=== PATIENT | female | born 1980 | race Caucasian/White ===

== ENCOUNTER 2016-07-23 23:16 | Emergency (ER) | payer BC ==
--- NOTE | 2016-07-24 01:25 | ED CLINICAL REPORT ---
Clinical Report - Physicians/Mid Levels [facility] [address] [place] [address] 07/23/2016 23:19 Patient: GEO QUIROGA Time Seen: 00:21. Arrived- By private vehicle. Historian- patient. HISTORY OF PRESENT ILLNESS Chief Complaint: EARACHE. This started last night and is still present and now worse. It was abrupt in onset and has been constant. Location- left ear. The pain is described as severe. The patient has had severe left-sided ear drainage. She has had recent barotrauma (she says that she was driving and felt her ear "pop"the pain was less severe initially but has become much worse.). No nasal congestion, sinus pressure, jaw pain or facial pain. REVIEW OF SYSTEMS No chills, fever, sweats, calf pain or chest pain. No cough, difficulty breathing, pedal edema, palpitations or abdominal pain. No constipation, diarrhea, nausea, vomiting or urinary problems. All systems otherwise negative, except as recorded above. PAST HISTORY Medications: None. Allergies: Rocephin. SOCIAL HISTORY Never smoker. History of drug use cannabidiol. FAMILY HISTORY Denies family medical history. ADDITIONAL NOTES The nursing notes have been reviewed. PHYSICAL EXAM Vital Signs: 07/24/2016 00:13 BP: 134/85. HR: 76. RR: 18. O2 saturation: 100%. Temp: 97.2 F. Have been reviewed. Appearance: Alert. Throat: Pharynx normal. Ear (left): There is erythema and dullness of the tympanic membrane. No fluid behind the tympanic membrane or bulging of the tympanic membrane. Nose: Nose normal. Ear (right): Right ear normal. Neck: Normal inspection. Neck supple. CVS: Normal heart rate and rhythm. Heart sounds normal. Respiratory: Breath sounds normal. Abdomen: Soft and nontender. Back: Normal inspection. Skin: Skin warm and dry. Normal skin color. Normal skin turgor. Extremities: Extremities exhibit normal ROM. No lower extremity edema. PROGRESS AND PROCEDURES Course of Care: Patient is stable. Patient/family counseled. Disposition: Discharged. Condition: stable. CLINICAL IMPRESSION Acute left otalgia INSTRUCTIONS No driving or operating machinery while taking medication. Drink plenty of fluids. Warnings: Further evaluation is necessary. GENERAL WARNINGS: Return or contact your physician immediately if your condition worsens or changes unexpectedly, if not improving as expected, or if other problems arise. Prescription Medications: Tylenol with Codeine #3 (30 mg / 300 mg): take 1 tablet every 4 hours as needed for pain. Dispense fifteen (15). No refills. Substitution is permissible. Amoxicillin 500 mg tablets: Take 1 orally every 8 hours for 10 days. Dispense thirty (30). No refills. Understanding of the discharge instructions verbalized by patient. (Electronically signed by Fuentes Holden MD 07/28/2016 1:25)
--- NOTE | 2016-07-24 01:25 | ED CLINICAL REPORT ---
Clinical Report - Physicians/Mid Levels [facility] [address] [place] [address] 07/23/2016 23:19 Patient: GEO QUIROGA Time Seen: 00:21. Arrived- By private vehicle. Historian- patient. HISTORY OF PRESENT ILLNESS Chief Complaint: EARACHE. This started last night and is still present and now worse. It was abrupt in onset and has been constant. Location- left ear. The pain is described as severe. The patient has had severe left-sided ear drainage. She has had recent barotrauma (she says that she was driving and felt her ear "pop"the pain was less severe initially but has become much worse.). No nasal congestion, sinus pressure, jaw pain or facial pain. REVIEW OF SYSTEMS No chills, fever, sweats, calf pain or chest pain. No cough, difficulty breathing, pedal edema, palpitations or abdominal pain. No constipation, diarrhea, nausea, vomiting or urinary problems. All systems otherwise negative, except as recorded above. PAST HISTORY Medications: None. Allergies: Rocephin. SOCIAL HISTORY Never smoker. History of drug use cannabidiol. FAMILY HISTORY Denies family medical history. ADDITIONAL NOTES The nursing notes have been reviewed. PHYSICAL EXAM Vital Signs: 07/24/2016 00:13 BP: 134/85. HR: 76. RR: 18. O2 saturation: 100%. Temp: 97.2 F. Have been reviewed. Appearance: Alert. Throat: Pharynx normal. Ear (left): There is erythema and dullness of the tympanic membrane. No fluid behind the tympanic membrane or bulging of the tympanic membrane. Nose: Nose normal. Ear (right): Right ear normal. Neck: Normal inspection. Neck supple. CVS: Normal heart rate and rhythm. Heart sounds normal. Respiratory: Breath sounds normal. Abdomen: Soft and nontender. Back: Normal inspection. Skin: Skin warm and dry. Normal skin color. Normal skin turgor. Extremities: Extremities exhibit normal ROM. No lower extremity edema. PROGRESS AND PROCEDURES Course of Care: Patient is stable. Patient/family counseled. Disposition: Discharged. Condition: stable. CLINICAL IMPRESSION Acute left otalgia INSTRUCTIONS No driving or operating machinery while taking medication. Drink plenty of fluids. Warnings: Further evaluation is necessary. GENERAL WARNINGS: Return or contact your physician immediately if your condition worsens or changes unexpectedly, if not improving as expected, or if other problems arise. Prescription Medications: Tylenol with Codeine #3 (30 mg / 300 mg): take 1 tablet every 4 hours as needed for pain. Dispense fifteen (15). No refills. Substitution is permissible. Amoxicillin 500 mg tablets: Take 1 orally every 8 hours for 10 days. Dispense thirty (30). No refills. Understanding of the discharge instructions verbalized by patient. (Electronically signed by Fuentes Holden MD 07/28/2016 1:25)
--- NOTE | 2016-07-24 01:26 | ED NURSING NOTES ---
Clinical Report - Nurses [facility] [address] [place] [address] 07/23/2016 23:19 [id number] Triage time 00:14 Jul 24 2016. Acuity: LEVEL 4. Chief Complaint: PULLING RIGHT EAR. --00:16 Fredy Diallo R.N. 00:13 07/24/16. BP: 134/85. HR: 76. RR: 18. O2 saturation: 100%. Temp: 97.2 F. --00:16 Fredy Diallo R.N. Weight: 54.4 kg stated. Height/Length: 62 inches Per Patient. BMI: 22. --00:15 Fredy Diallo R.N. Medications None. --00:15 Fredy Diallo R.N. Allergies Rocephin. --00:15 Fredy Diallo R.N. History Arrived by private vehicle. Historian: patient. ( Pt states she was driving felt her L ear pop. it has been increasing in pain and she is unable to sleep). This started today. Treatment ENTRY LEVEL FINANCIAL ANALYST: None. PAST MEDICAL HX: Positive. SOCIAL HX: Never smoker. History of drug use. (cbd). No alcohol use. --00:16 Fredy Diallo R.N. Interventions ID band on patient. --00:16 Fredy Diallo R.N. PHYSICAL ASSESSMENT GENERAL / NEURO / PSYCH: Alert. Appears in pain. HEENT: No facial asymmetry noted. Pupils equal, round and reactive to light. Left ear abnormal. Right ear within normal limits. --00:21 Fredy Diallo R.N. NURSING PROGRESS NOTES Call light placed in reach. Side rails up x 1. Bed placed in lowest position. --00:21 Fredy Diallo R.N. DISPOSITION / DISCHARGE Departure time: 01:35 Jul 24 2016. No learning barriers present. Discharge instructions provided and reviewed with the patient. Patient verbalized understanding. Written instructions provided in Thai. The patient was discharged by the physician. She was discharged home. --:35 Fredy Diallo R.N. 01:34 07/24/16. BP: 128/79. HR: 80. RR: 18. O2 saturation: 100%. Temp: 98.8 F. Pain level now 0/10. --01:35 Fredy Diallo R.N. Locked/Released at 07/24/2016 5:56 by Fredy Diallo R.N.
--- NOTE | 2016-07-24 01:26 | ED NURSING NOTES ---
Clinical Report - Nurses [facility] [address] [place] [address] 07/23/2016 23:19 [id number] Triage time 00:14 Jul 24 2016. Acuity: LEVEL 4. Chief Complaint: PULLING RIGHT EAR. --00:16 Fredy Diallo R.N. 00:13 07/24/16. BP: 134/85. HR: 76. RR: 18. O2 saturation: 100%. Temp: 97.2 F. --00:16 Fredy Diallo R.N. Weight: 54.4 kg stated. Height/Length: 62 inches Per Patient. BMI: 22. --00:15 Fredy Diallo R.N. Medications None. --00:15 Fredy Diallo R.N. Allergies Rocephin. --00:15 Fredy Diallo R.N. History Arrived by private vehicle. Historian: patient. ( Pt states she was driving felt her L ear pop. it has been increasing in pain and she is unable to sleep). This started today. 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 PAST MEDICAL HX: Positive. SOCIAL HX: Never smoker. History of drug use. (cbd). No alcohol use. --00:16 Fredy Diallo R.N. Interventions ID band on patient. --00:16 Fredy Diallo R.N. PHYSICAL ASSESSMENT GENERAL / NEURO / PSYCH: Alert. Appears in pain. HEENT: No facial asymmetry noted. Pupils equal, round and reactive to light. Left ear abnormal. Right ear within normal limits. --00:21 Fredy Diallo R.N. NURSING PROGRESS NOTES Call light placed in reach. Side rails up x 1. Bed placed in lowest position. --00:21 Fredy Diallo R.N. DISPOSITION / DISCHARGE Departure time: 01:35 Jul 24 2016. No learning barriers present. Discharge instructions provided and reviewed with the patient. Patient verbalized understanding. Written instructions provided in Sinhala. The patient was discharged by the physician. She was discharged home. --:35 Fredy Diallo R.N. 01:34 07/24/16. BP: 128/79. HR: 80. RR: 18. O2 saturation: 100%. Temp: 98.8 F. Pain level now 0/10. --01:35 Fredy Diallo R.N. Locked/Released at 07/24/2016 5:56 by Fredy Diallo R.N.
--- NOTE | 2016-07-28 01:25 | ED MAR SUMMARY ---
..... Medication Administration Record [facility] [address], [place] [id number] Patient: GEO QUIROGA Visit ID: [id number] 35y, F Weight: 54.4 kg Height/Length: 62 in BMI: 22 ALLERGIES: Rocephin
--- NOTE | 2016-07-28 01:25 | ED MAR SUMMARY ---
..... Medication Administration Record [facility] [address] [place], [place] [id number] Patient: GEO QUIROGA Visit ID: [id number] 35y, F Weight: 54.4 kg Height/Length: 62 in BMI: 22 ALLERGIES: Rocephin
--- NOTE | 2016-07-28 01:25 | ED MED RECONCILIATION SUMMARY ---
Patient: GEO QUIROGA Medication Reconciliation Report [facility] VisitID: [id number] [address] [place] [address] 35y, F Registration Date/Time: 07/23/2016 Weight: 54.4 kg Height/Length: 62 in. BMI: 22.0 ALLERGIES: Rocephin The patient's Home Medications are listed below: NONE. The source(s) of the original Home Medication information: Not obtained. The following Medications were given to the patient in the Emergency Department: None. The following Medications were prescribed to the patient: Tylenol with Codeine #3 (30 mg / 300 mg): take 1 tablet every 4 hours as needed for pain. Dispense fifteen (15). No refills. Substitution is permissible. -- Fuentes Holden MD Amoxicillin 500 mg tablets: Take 1 orally every 8 hours for 10 days. Dispense thirty (30). No refills. -- Fuentes Holden MD
--- NOTE | 2016-07-28 01:25 | ED DISCHARGE INSTRUCTIONS ---
Patient: GEO QUIROGA General Instructions [facility] VisitID: [id number] [place] [address] 35y, F Registration Date/Time: 07/23/2016 Acute left otalgia INSTRUCTIONS No driving or operating machinery while taking medication. Drink plenty of fluids. Warnings: Further evaluation is necessary. GENERAL WARNINGS: Return or contact your physician immediately if your condition worsens or changes unexpectedly, if not improving as expected, or if other problems arise. Prescription Medications: Tylenol with Codeine #3 (30 mg / 300 mg): take 1 tablet every 4 hours as needed for pain. Dispense fifteen (15). No refills. Substitution is permissible. Amoxicillin 500 mg tablets: Take 1 orally every 8 hours for 10 days. Dispense thirty (30). No refills. Understanding of the discharge instructions verbalized by patient. ADDITIONAL INFORMATION Middle Ear Infection (Adult) You have an infection of the middle ear (the space behind the eardrum). It can occur as a result of the common cold. This is because congestion can block the internal passage (eustachian tube) that drains fluid from the middle ear. When the middle ear fills with fluid, bacteria can grow there and cause an infection. Oral antibiotics are used to treat this illness, not ear drops. Symptoms usually start to improve within 1-2 days of treatment. Home Care: Finish all of the antibiotic medicine prescribed, even though you may feel better after the first few days. You may use acetaminophen (Tylenol) or ibuprofen (Motrin, Advil) to control pain, unless something else was prescribed. [NOTE: If you have chronic liver or kidney disease or have ever had a stomach ulcer or GI bleeding, talk with your doctor before using these medicines.] (Do not give aspirin to anyone under 18 years of age who is ill with a fever. It may cause severe liver damage.) Follow Up with your doctor or this facility in two weeks if all symptoms have not cleared, or if hearing does not return to normal within one month. Get Prompt Medical Attention if any of the following occur: Ear pain gets worse or does not improve after three days of treatment Unusual drowsiness or confusion Neck pain, stiff neck or headache Fluid or blood draining from the ear canal Fever of 100.4F (38C) or higher after 3 days of antibiotics, or as directed by your healthcare provider Convulsion (seizure) Acetaminophen, Codeine Phosphate Oral tablet What is this medicine? ACETAMINOPHEN; CODEINE (a set a MYLES nancy lund; MIKIE nicholas) is a pain reliever. It is used to treat mild to moderate pain. How should I use this medicine? Take this medicine by mouth with a full glass of water. Follow the directions on the prescription label. If the medicine upsets your stomach, take the medicine with food or milk. Do not take more medicine than you are told to take. Talk to your roll cutting operator regarding the use of this medicine in children. Special care may be needed. What side effects may I notice from receiving this medicine? Side effects that you should report to your doctor or health managed care manager as soon as possible: allergic reactions like skin rash, itching or hives, swelling of the face, lips, or tongue breathing difficulties, wheezing confusion light headedness or fainting spells severe stomach pain yellowing of the skin or the whites of the eyes Side effects that usually do not require medical attention (report to your doctor or health managed care manager if they continue or are bothersome): dizziness drowsiness nausea, vomiting What may interact with this medicine? alcohol antihistamines benztropine drugs for bladder problems like solifenacin, trospium, oxybutynin, tolterodine, hycosamine, and methscopolamine drugs for breathing problems like ipratropium and tiotropium drugs for certain stomach or intestine problems like propantheline, homatropine methylbromide, glycopyrrolate, atropine, belladonna, and dicyclomine medicines for depression, anxiety, or psychotic disturbances medicines for sleep muscle relaxants naltrexone narcotic medicines (opiates) for pain phenothiazines like perphenazine, thioridazine, chlorpromazine, mesoridazine, fluphenazine, prochlorperazine, promazine, trifluoperazine scopolamine tramadol trihexyphenidyl What if I miss a dose? If you miss a dose, take it as soon as you can. If it is almost time for your next dose, take only that dose. Do not take double or extra doses. Where should I keep my medicine? Keep out of the reach of children. This medicine can be abused. Keep your medicine in a safe place to protect it from theft. Do not share this medicine with anyone. Selling or giving away this medicine is dangerous and against the law. Store at room temperature between 15 and 30 degrees C (59 and 86 degrees F). Protect from light. Keep container tightly closed. Throw away any unused medicine after the expiration date. Discard unused medicine and used packaging carefully. Pets and children can be harmed if they find used or lost packages. What should I tell my health care provider before I take this medicine? They need to know if you have any of these conditions: brain tumor Crohn's disease, inflammatory bowel disease, or ulcerative colitis drink more than 3 alcohol containing drinks per day drug abuse or addiction head injury heart or circulation problems kidney disease or problems going to the bathroom liver disease lung disease, asthma, or breathing problems an unusual or allergic reaction to acetaminophen, codeine, salicylates, other opioid analgesics, other medicines, foods, dyes, or preservatives or trying to get breast-feeding What should I watch for while using this medicine? Tell your doctor or health managed care manager if your pain does not go away, if it gets worse, or if you have new or a different type of pain. You may develop tolerance to the medication. Tolerance means that you will need a higher dose of the medication for pain relief. Tolerance is normal and is expected if you take the medicine for a long time. Do not suddenly stop taking your medicine because you may develop a severe reaction. Your body becomes used to the medicine. This does NOT mean you are addicted. Addiction is a behavior related to getting and using a drug for a non medical reason. If you have pain, you have a medical reason to take pain medicine. Your doctor will tell you how much medicine to take. If your doctor wants you to stop the medicine, the dose will be slowly lowered over time to avoid any side effects. You may get drowsy or dizzy. Do not drive, use machinery, or do anything that needs mental alertness until you know how this medicine affects you. Do not stand or sit up quickly, especially if you are an older patient. This reduces the risk of dizzy or fainting spells. Alcohol may interfere with the effect of this medicine. Avoid alcoholic drinks. There are different types of narcotic medicines (opiates) for pain. If you take more than one type at the same time, you may have more side effects. Give your health care provider a list of all medicines you use. Your doctor will tell you how much medicine to take. Do not take more medicine than directed. Call emergency for help if you have problems breathing. The medicine will cause constipation. Try to have a bowel movement at least every 2 to 3 days. If you do not have a bowel movement for 3 days, call your doctor or health managed care manager. Do not take Tylenol (acetaminophen) or medicines that have acetaminophen with this medicine. Too much acetaminophen can be very dangerous. Many nonprescription medicines contain acetaminophen. Always read the labels carefully to avoid taking more acetaminophen. Immediately call your physician or get emergency help if you are breast-feeding and your baby is sleepier than usual, is limp, or has difficulty or breathing. Amoxicillin Trihydrate Oral tablet What is this medicine? AMOXICILLIN (a mox i MONIQUE in) is a penicillin antibiotic. It is used to treat certain kinds of bacterial infections. It will not work for colds, flu, or other viral infections. How should I use this medicine? Take this medicine by mouth with a glass of water. Follow the directions on your prescription label. You may take this medicine with food or on an empty stomach. Take your medicine at regular intervals. Do not take your medicine more often than directed. Take all of your medicine as directed even if you think your are better. Do not skip doses or stop your medicine early. Talk to your roll cutting operator regarding the use of this medicine in children. While this drug may be prescribed for selected conditions, precautions do apply. What side effects may I notice from receiving this medicine? Side effects that you should report to your doctor or health managed care manager as soon as possible: allergic reactions like skin rash, itching or hives, swelling of the face, lips, or tongue breathing problems dark urine redness, blistering, peeling or loosening of the skin, including inside the mouth seizures severe or watery diarrhea trouble passing urine or change in the amount of urine unusual bleeding or bruising unusually weak or tired yellowing of the eyes or skin Side effects that usually do not require medical attention (report to your doctor or health managed care manager if they continue or are bothersome): dizziness headache stomach upset trouble sleeping What may interact with this medicine? amiloride control pills chloramphenicol macrolides probenecid sulfonamides tetracyclines What if I miss a dose? If you miss a dose, take it as soon as you can. If it is almost time for your next dose, take only that dose. Do not take double or extra doses. Where should I keep my medicine? Keep out of the reach of children. Store between 68 and 77 degrees F (20 and 25 degrees C). Keep bottle closed tightly. Throw away any unused medicine after the expiration date. What should I tell my health care provider before I take this medicine? They need to know if you have any of these conditions: asthma kidney disease an unusual or allergic reaction to amoxicillin, other penicillins, cephalosporin antibiotics, other medicines, foods, dyes, or preservatives or trying to get breast-feeding What should I watch for while using this medicine? Tell your doctor or health managed care manager if your symptoms do not improve in 2 or 3 days. Take all of the doses of your medicine as directed. Do not skip doses or stop your medicine early. If you are diabetic, you may get a false positive result for sugar in your urine with certain brands of urine tests. Check with your doctor. Do not treat diarrhea with [id number] products. Contact your doctor if you have diarrhea that lasts more than 2 days or if the diarrhea is severe and watery. You have been given the following additional information: Otitis Media, Abx Tx (Adult) Acetaminophen, Codeine Phosphate Oral tablet Amoxicillin Trihydrate Oral tablet No driving or operating machinery while taking medication. (Electronically signed by Fuentes Holden MD 07/28/2016 1:25)
--- NOTE | 2016-07-28 01:25 | ED MED RECONCILIATION SUMMARY ---
Patient: GEO QUIROGA Medication Reconciliation Report [facility] VisitID: [id number] [address] [place] [address] 35y, F Registration Date/Time: 07/23/2016 Weight: 54.4 kg Height/Length: 62 in. BMI: 22.0 ALLERGIES: Rocephin The patient's Home Medications are listed below: NONE. The source(s) of the original Home Medication information: Not obtained. The following Medications were given to the patient in the Emergency Department: None. The following Medications were prescribed to the patient: Tylenol with Codeine #3 (30 mg / 300 mg): take 1 tablet every 4 hours as needed for pain. Dispense fifteen (15). No refills. Substitution is permissible. -- Fuentes Holden MD Amoxicillin 500 mg tablets: Take 1 orally every 8 hours for 10 days. Dispense thirty (30). No refills. -- Fuentes Holden MD
== END 2016-07-24 01:32 | disposition home or self-care (01) ==
LOC: ED SRH 23:16
DX: H92.02 Otalgia, left ear (principal); Z88.8 Allergy status to other drugs, medicaments and biological substances